=== PATIENT | female | born 1960 | race African-American/Black ===

== ENCOUNTER 2016-07-10 16:51 | Observation (INO) | payer BC ==
[~2016-07-10] VITALS: Ht 175.3 cm; Wt 70.2 kg
--- NOTE | ~2016-07-10 | HEMODYNAMI ---
PATIENT:PEG DANIELSON MEDICAL RECORD: [id number] : 62 LOCATION:[facility] D.[address]122 [facility]# [id number] ADMISSION DATE: 07/10/16 Generatedon:07/11/201615:35 Patient name: PEG DANIELSON Patient #: [id number] SSN: [id number] : 1960 Date of study: 07/11/2016 Page: Of Hemodynamic Procedure Report Patient Data Patient Demographics Procedure consent was obtained First Name: PEG Gender: Female Last Name: ERUM : 1960 [facility] Initial: E Age: 56 year(s) Patient #: [id number] Race: Black SSN: [id number] Additional ID: [id number] Contact details Address: [address] [place] [address] rd State: [place] City: [facility] Zip code: [address] Past Medical History Allergies: No known allergies Admission Admission Data Admission Date: 07/10/2016 Admission Time: 16:51 Arrival Date: 07/10/2016 Arrival Time: 16:51 Admit Source: Other Insurance Payor: Private Room #: [id number] health insurance Weight (lbs.): 159 Weight (kg.): 72.12 Lab Results Lab Result Date: 07/11/2016 Lab Result Time: 0:00 Biochemistry Name Units Result Min Max Creatinine mg/dl 0.9 --(-*--)-- 0.6 1.3 CBC Name Units Result Min Max Hemoglobin g/dl 13.3 -*(----)-- 13.5 17.5 Procedure Procedure Types Cath Procedure Diagnostic Procedure LHC LHC w/Coronaries Miscellaneous Procedures Moderate Sedation up to 30 minutes Procedure Description Procedure Date Procedure Date: 07/11/2016 Procedure Start Time: 15:14 Procedure End Time: 15:30 Procedure Staff Name Function Deb Carbone RT Monitor Debo Sadler RN Nurse Bay Casarez MD Performing Physician Adria Mcneal RT Scrub Ashley Rivera RT Monitor Procedure Data Cath Procedure Fluoroscopy Diagnostic fluoroscopy Total fluoroscopy Time: 1.4 time: 1.4 min min Diagnostic fluoroscopy Total fluoroscopy dose: 236 dose: 236 mGy mGy Contrast Material Contrast Material Type Amount (ml) Isovue 370 58 Entry Location Entry Primary Successful Side Size Upsize Upsize Entry Closure Succes sful Closure Location (Fr) 1 (Fr) 2 (Fr) Remarks Device Remarks Femoral Right 5 Fr Exoseal artery Estimated blood loss: 5 ml Diagnostic catheters Device Type Used For End Catheter Placement Cordis 5Fr JL 4.0 Left Coronary Catheter (MP) Angiography Cordis 5Fr 3DRC Catheter Right Coronary (MP) Angiography Cordis 5Fr Pigtail LV Angiography Catheter (MP) Procedure Complications No complications Procedure Medications Medication Administration Route Dosage Oxygen NC 2 l/min Lidocaine 2% added to field 20 Heparin Flush Bag added to field 2 bags (1000units/500ml NS) 0.9% NaCl I.V. 100 ml/hr Versed I.V. 1 mg Fentanyl I.V. 50 mcg Versed I.V. 1 mg Fentanyl I.V. 50 mcg Versed I.V. 1 mg Fentanyl I.V. 50 mcg Versed I.V. 1 mg Fentanyl I.V. 50 mcg Hemodynamics Rest HGB: 13.3 (g/dl) Heart Rate: 82 (bpm) Pressure Samples Time Site Value (mmHg) Purpose Heart Use Rate(bpm) 15:24 LV 134/-6,13 Snapshot 87 15:25 LV 153/-9,23 Pullback 92 15:25 AO 135/70(99) Pullback 92 Gradients Valve Time Site 1 Site 2 Mean SEP/DFP Peak To Heart Use (mmHg) (sec/min) Peak Rate (mmHg) (bpm) Aortic 15:25 LV AO 15 27 18 92 153/-9,23 135/70(99) Calculations Valve P-P Mean Valve Index Valve Source Name Gradient Area Flow (cm2) Aortic 18 15 18 15 Snapshots Pre Cath Intra NCS Post Cath Vital Signs Time Heart Resp SPO2 etCO2 HA6pxck NIBP (mmHg) Rhythm Pain Sedation Rate (ipm) (%) (mmHg) (mmHg) Status Level (bpm) 15:02:44 72 20 100 0 0 140/82(114) NSR 0 (11) 10(A) , No pain 15:06:58 74 17 100 0 0 122/73(93) NSR 0 (11) 10(A) , No pain 15:11:06 76 17 99 0 0 110/76(89) NSR 0 (11) 10(A) , No pain 15:15:09 77 16 99 0 0 113/75(89) NSR 0 (11) 9(A) , No pain 15:19:15 86 17 96 0 0 115/74(96) NSR 0 (11) 9(A) , No pain 15:23:17 99 15 99 0 0 129/83(101) NSR 0 (11) 9(A) , No pain 15:27:29 87 16 100 0 0 122/74(102) NSR 0 (11) 9(A) , No pain 15:31:55 84 12 100 0 0 140/72(106) NSR 0 (11) 10(A) , No pain Medications Time Medication Route Dose Verified Delivered Reason Notes Effe ctiveness by by 14:57:22 Oxygen NC 2 Bay Buffie used for l/min Hermelindo Sadler RN procedure 15:01:19 Lidocaine 2% added 20ml Bay Bay for local to vial Hermelindo Casarez MD anesthetic field 15:01:25 Heparin Flush added 2 Bay Bay used for Bag to bags Hermelindo Casarez MD procedure (1000units/500ml field NS) 15:01:36 0.9% NaCl I.V. 100 Bay Buffie Per ml/hr Hermelindo Sadler RN physician 15:09:47 Versed I.V. 1 mg Bay Buffie for Hermelindo Sadler RN sedation 15:09:53 Fentanyl I.V. 50 Bay Buffie for mcg Hermelindo Sadler RN sedation 15:13:15 Versed I.V. 1 mg Bay Buffie for Hermelindo Sadler RN sedation 15:13:18 Fentanyl I.V. 50 Bay Buffie for mcg Hermelindo Sadler RN sedation 15:17:33 Versed I.V. 1 mg Bay Buffie for Hermelindo Sadler RN sedation 15:17:36 Fentanyl I.V. 50 Bay Buffie for mcg Hermelindo Sadler RN sedation 15:25:41 Versed I.V. 1 mg Bay Buffie for Hermelindo Sadler RN sedation 15:25:45 Fentanyl I.V. 50 Bay Buffie for mcg Casarez MD Sadler RN sedation Procedure Log Time Note 14:39:22 Debo Sadler RN sent for patient. Start room use. 14:49:34 Time tracking: Regular hours 14:49:38 Plan of Care:Hemodynamics will remain stable., Cardiac rhythm will remain stable., Comfort level will be maintained., Respiratory function will remain adequate., Patient/ family verbilizes understanding of procedure., Procedure tolerated without complication., Recovers from procedure without complications.. 14:49:46 Patient received from PCU to CCL 1 Alert and oriented. Tansferred to table in Supine position. 14:49:47 Warm blankets applied, and carlo hugger turned on for patient comfort. 14:49:48 Correct patient and procedure confirmed by team. 14:49:49 Signed procedure consent form obtained from patient. 14:49:50 ECG and BP/O2 sat monitors applied to patient. 14:49:51 Full Disclosure recording started 14:50:52 H&P Date Dictated: 07/11/2016 Within 30 days and on chart.. 14:50:54 Pre-op teaching completed and patient verbalized understanding. 14:50:54 Pre-procedure instructions explained to patient. 14:50:56 Family in patients room. 14:51:01 Patient NPO since Midnight. 14:51:07 Patient allergic to No known allergies 14:51:09 Is the patient allergic to Iodine/contrast media? No. 14:52:21 Is patient on blood thinner?No 14:52:26 Patient diabetic? Yes. 14:52:48 If diabetic: On Metformin? Yes 14:52:51 If on Metformin: Last Dose? 07/08/2016 14:53:00 Previous problem with sedation/anesthesia? No ? 14:53:02 Snore? Yes 14:53:03 Sleep apnea? No 14:53:14 Opens mouth fully? Yes 14:53:14 Deviated septum? No 14:53:15 Sticks out tongue? Yes 14:53:23 Airway obstruction? No ? 14:53:28 Dentures? Yes in 14:53:45 Pre procedure: right dorsailis pedis pulse 1+ Palpable, but thready & weak; easily obliterated 14:53:48 Patient pain scale 0/10 ?. 14:54:06 IV patent on arrival in right forearm with 0.9% NaCl at [facility]. 14:54:34 Lab Result : Hemoglobin 13.3 g/dl 14:54:34 Lab Result : Creatinine 0.9 mg/dl 14:54:43 Lab results completed and on chart. 14:54:46 Alarms reviewed by R. N. 14:54:46 Right groin area was prepped with chlora-prep and draped in sterile fashion 14:54:47 Sharps counted by scrub and verified by R.N. 14:54:49 Use device set Femoral Dx 14:54:50 Bag Decanter opened to sterile field. 14:54:50 Acist Syringe opened to sterile field. 14:54:51 Terumo 5Fr Van Horne Sheath opened to sterile field. 14:54:51 Medline Cath Pack opened to sterile field. 14:54:52 St Alexander 260cm J .035 wire opened to sterile field. 14:54:53 Acist Hand Control opened to sterile field. 14:54:54 Diagnostic Infinity 5Fr Multipack catheter opened to sterile field. 14:54:54 Acist Manifold opened to sterile field. 14:54:55 Tegaderm 4 x 4 opened to sterile field. 14:57:22 Oxygen 2 l/min NC was administered by Debo Sadler RN; used for procedure; 15:01:19 Lidocaine 2% 20ml vial added to field was administered by Bay Casarez MD; for local anesthetic; 15:01:25 Heparin Flush Bag (1000units/500ml NS) 2 bags added to field was administered by Bay Casarez MD; used for procedure; 15:01:36 0.9% NaCl 100 ml/hr I.V. was administered by Debo Sadler RN; Per physician; ::44 Vital chart was started 15:08:37 Physician arrived 15:08:38 --------ALL STOP TIME OUT------ 15:08:38 Final Timeout: patient, procedure, and site verified with staff and physician. All members of the team are in agreement. 15:08:42 Right groin site verified by team. 15:08:46 Physical assessment completed. ASA score P 2 - A patient with mild systemic disease as per Bay Casarez MD. 15:08:49 Sedation plan: IV Moderate Sedation Versed, Fentanyl 15::47 Versed 1 mg I.V. was administered by Buffie Sadler RN; for sedation; 15:09:53 Fentanyl 50 mcg I.V. was administered by Debo Sadler RN; for sedation; 15:11:59 Procedure started. 15:13:15 Versed 1 mg I.V. was administered by Debo Sadler RN; for sedation; 15:13:18 Fentanyl 50 mcg I.V. was administered by Debo Sadler RN; for sedation; 15:14:27 Zero performed for pressure channel P1 15:14:54 Local anesthetic to right femoral artery with Lidocaine 2% by Bay Casarez MD.INITIAL ACCESS ONLY 15:15:22 A 5 Fr sheath was inserted into the Right Femoral artery 15:15:52 A Cordis 5Fr JL 4.0 Catheter (MP) was advanced over the wire and used for Left Coronary Angiography. 15:16:21 Baseline sample Acquired. 15:17:33 Versed 1 mg I.V. was administered by Debo Sadler RN; for sedation; 15:17:36 Fentanyl 50 mcg I.V. was administered by Debo Sadler RN; for sedation; 15:20:42 LCA angiography performed. 15:20:56 Injector settings: Ml/sec: 3, Volume: 6, 15:22:05 Catheter removed. 15:22:12 A Cordis 5Fr 3DRC Catheter (MP) was advanced over the wire and used for Right Coronary Angiography. 15:23:02 RCA angiography performed. 15:23:27 Injector settings: Ml/sec: 3, Volume: 6, 15:23:35 Catheter removed. 15:23:45 A Cordis 5Fr Pigtail Catheter (MP) was advanced over the wire and used for LV Angiography. 15:24:39 LV hemodynamics recorded. 15:24:40 LV gram done using CRAIG 15:24:43 Injector settings: Ml/sec: 5, Volume: 15, 15:24:50 EF : 60 % 15:25:41 Versed 1 mg I.V. was administered by Debo Sadler RN; for sedation; 15:25:45 Fentanyl 50 mcg I.V. was administered by Debo Sadler RN; for sedation; 15:26:05 Catheter removed. 15:26:41 Cordis 5Fr Exoseal opened to sterile field. 15:27:21 Sheath removed intact; hemostasis achieved with Exoseal to the Right Femoral artery. 15:27:25 Procedure ended.(Physican Out) 15:28:08 Fluoroscopy time 01.40 minutes. 15:28:12 Fluoroscopy dose: 236 mGy 15:28:12 Flurop Dose total: 236 15::59 Contrast amount:Isovue 370 58ml. 15:29:01 Sharps counted by scrub and verified by R.N. 15:29:02 Insertion/operative site no bleeding no hematoma. 15:29:05 Post-op/insertion site Right Femoral artery dressed using a 4 x 4 and Tegaderm. 15:29:08 Post right femoral artery:stable 15:29:10 Post Procedure Pulses reassessed and unchanged 15:29:13 Post procedure rhythm: unchanged. 15:29:16 Estimated blood loss: 5 ml 15:29:17 Post procedure instruction explained to patient.Patient verbalizes understanding. 15:29:18 Patient needs reinforcement of post procedure teaching. 15:29:31 Procedure type changed to Cath procedure, Diagnostic procedure, LHC, LHC w/Coronaries, Miscellaneous Procedures, Moderate Sedation up to 30 minutes 15:29:33 Procedure and supply charges have been captured, reviewed, submitted and are correct. 15:29:38 Procedure Complication : No complications 15:29:40 Vital chart was stopped 15:29:41 See physician's report for complete and final results. 15:30:01 Report given to Med II. 15:30:05 Patient transfered to Med II with Stretcher. 15:30:07 Full Disclosure recording stopped 15:30:07 Procedure ended. 15:30:11 End room use (Document Last) 15:31:02 Admit Source: Other 15:31:06 Arrival Date: 07/10/2016 4:51:00 PM 15:31:14 Insurance Payor : Private health insurance 15:31:26 Patient Weight : 159 kg Device Usage Item Name Manufacture Quantity Catalog Hospital Part Current Minimal Lo t# / Number Charge Number Stock Stock Serial# Code Acist Acist 1 72201 161118 516558 804105 20 Syringe [employer] Inc Bag Microtek 1 2002S 720858 13234 237855 5 Decanter Medical Inc. Medline Cardinal 1 [id number] 469690 67535 636513 5 Cath Pack Health Terumo 5Fr Terumo 1 [id number] 979136 989747 882090 [address] [facility] 1 467153 265252 239786 093411 30 260cm J .035 wire Acist Hand Acist 1 50914 284036 736186 754242 5 Control Medical Systems Inc Acist Acist 1 82211 171512 882668 235846 5 Manifold Medical Systems Inc Diagnostic Cardinal 1 [id number] 230090 17890 681565 30 Infinity Health 5Fr Multipack catheter Tegaderm 4 3M 1 1626W 084062 496004 581892 5 x 4 Cordis 5Fr Cardinal 1 291014 5 JL 4.0 Health Catheter (MP) Cordis 5Fr Cardinal 1 690655 5 3DRC Health Catheter (MP) Cordis 5Fr Cardinal 1 338871 5 Pigtail Health Catheter (MP) Cordis 5Fr Cardinal 1 EX500 665200 618421 092456 10 [facility] Health Signature Audit [place]att[place] Stage Time Signature Unsigned Intra-Procedure 07/11/2016 Ashley Rivera 3:35:16 PM RT(R) Signatures Monitor : Deb Signature : Raf RT Date : Time : Monitor : Ashley Rivera RT Signature : Date : Time : [address] [address]
--- NOTE | ~2016-07-10 | OP ---
PATIENT NAME: PEG DANIELSON MEDICAL RECORD: [id number] :62 LOCATION:D. D.2122 ADMISSION DATE:07/10/16 SURGEON: NITESH COPE M.D. DATE OF OPERATION: 07/11/2016 REFERRING PHYSICIAN: Yaya Michele MD PROCEDURES PERFORMED: 1. Selective coronary angiography. 2. Left heart catheterization with ventriculogram. INDICATION: A 56-year-old woman, who presents after a syncopal episode and chest discomfort. EQUIPMENT USED: A 5-Uruguayan JL4, Rodney right, pigtail catheter. TECHNIQUE: A 5-Uruguayan sheath was inserted in a retrograde fashion in the right common femoral artery. Next, selective coronary angiography was performed in standard 5-Uruguayan JL4 and Rodney right. Left heart catheterization was performed using the pigtail catheter. CORONARY ANATOMY: 1. Left main: Left main trunk is moderate in caliber. It gives rise to the LAD and circumflex. It has no obstruction. 2. LAD: This is a moderate caliber vessel extending to the apex. The mid vessel has been stented. 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 There is mild restenosis seen, but no flow limitations throughout this area. 3. Circumflex: This vessel is moderate in caliber. It is a smooth-walled vessel and angiographically normal. 4. Right coronary artery: This vessel is moderate in caliber and dominant. It provides the PDA and distal segment. This vessel is smooth-walled and angiographically normal. 5. Left ventricle: Left ventricle is normal in size and function. No wall motion abnormalities are seen. Its ejection fraction is 60%. IMPRESSION: 1. Patent stent in the left anterior descending without any evidence of significant restenosis. 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 2. The circumflex and right coronary artery are widely patent. RECOMMENDATIONS: At this point, her syncope does not appear to be from a coronary insufficiency. We will likely place an event monitor on her to rule out arrhythmia. TRANSINT:[id number] Voice Confirmation ID: [id number] DOCUMENT ID: [id number] NITESH COPE M.D. CC: [id number] DICTATION DATE: 07/11/16 1537 WET TRIMMER: 07/11/168 DIS IN 07/11/16 [place] [address]
[~2016-07-10 16:51] MED LIST: ASPIRIN81 MG PO; PLAVIX75 MG PO; PRINZIDE 20/12.1 TA1 PO
--- NOTE | 2016-07-10 17:07 | NUR ---
TRANSFER FROM ADMISSIONS BY W/C. OREINTED TO ROOM. CALL LIGHT IN REACH. WILL CONT. PLAN OF CARE.
[2016-07-10] MEDS ORDERED: GLUCOPHAGE500 MG PO (17:34)
[2016-07-10 17:43] VITALS: BP 131/78; BMI 23.5
[2016-07-10 18:41] LABS: CKMB 1.9 U/L (0.0-3.6); CREATINE KINASE 169 UL (21-215)
[2016-07-10 18:48] LABS: TROPONIN-I < 0.017 ng/mL (0.000-0.060)
[2016-07-10 20:46] VITALS: BP 127/71
--- NOTE | 2016-07-10 23:25 | NUR ---
THIS PM, PATIENT HAS NO COMPLAINTS. WARM AND DRY. NO PAIN. MONITOR SHOWS NSR@63
[2016-07-10 23:56] LABS: CKMB 1.6 U/L (0.0-3.6); CREATINE KINASE 140 UL (21-215); TROPONIN-I < 0.017 ng/mL (0.000-0.060)
[2016-07-10 23:58] VITALS: BP 110/56
[2016-07-11 04:11] VITALS: BP 126/79
--- NOTE | 2016-07-11 06:32 | NUR ---
AWAKE BUT HAS SLEPT ALL NIGHT NO CO OR NO DISTRESS.
[2016-07-11 06:59] LABS: CKMB 1.3 U/L (0.0-3.6); CREATINE KINASE 126 UL (21-215); TROPONIN-I < 0.017 ng/mL (0.000-0.060)
[2016-07-11 08:03] LABS: ANION GAP 8.4 mmol/L (8-16); CARBON DIOXIDE 34.1 mmol/L (21.0-32.0); CREATININE - SERUM 0.9 mg/dL (0.6-1.3); POTASSIUM - SERUM 4.5 mmol/L (3.5-5.1)
[2016-07-11 08:04] LABS: BASOPHILS 0.5 % (0-2); EOSINOPHILS 7.1 % (0-7); HEMATOCRIT 41.3 % (36.0-48.0); HEMOGLOBIN 13.3 g/dL (12-16); IMMATURE GRANULOCYTES 0.3 % (0-5); LYMPHOCYTES 51.1 % (15-50); MCH 30.8 pg (26.0-34.0); MCHC 32.2 g/dL (31.0-37.0); MCV 95.6 fL (80.0-100.0); MEAN PLATELET VOLUME 10.9 fL (7.4-10.4); MONOCYTES 11.6 % (2-11); NEUTROPHILS 29.4 % (40-80); PLATELET COUNT 201 10x3/uL (130-400); RBC 4.32 10x6/uL (4.00-5.40); RDW 13.3 % (11.5-14.5); WBC 3.8 10x3/uL (4.8-10.8)
--- NOTE | 2016-07-11 08:04 | NUR ---
CONSENTS OBTAINED FOR CATH WITH TODAY. PT SITTING UP IN BED RESTING QUIETLY WITH FAMILY AT BEDSIDE. WRAPPED PTS IV SO SHE CAN TAKE A SHOWER. PT DENIES NEEDING MORNING MEDS AND STATES SHE HAS HER HOME MEDS, WILL PROVIDED ASPIRIN R/T HER NOT HAVING THAT ONE. NO FURTHER NEEDS AT THIS TIME. WILL CPOC.
--- NOTE | 2016-07-11 08:23 | HP ---
PATIENT: PEG DANIELSON MEDICAL RECORD: [id number] ACCOUNT: [id number] LOCATION:[address] : 62 ADMISSION DATE: 07/10/16 HISTORY AND PHYSICAL EXAMINATION DATE ASSIGNED TO OBSERVATION: 07/10/2016 CHIEF COMPLAINT: Palpitations and syncopal episode. HISTORY OF PRESENT ILLNESS: A 56-year-old -[place] female, who presented to our office today. She sees Priya Palafox our nurse practitioner and gave her history of episodes of palpitations for 3-4 weeks. She has had about 4 of those palpitations a day, lasting anywhere from 1-3 minutes. Yesterday, she was getting off a [place] bus and felt dizzy while standing up and lost consciousness and fell to the ground. She was out for a few seconds. She did not go to the Emergency Room yesterday. She elected to come in today in our office. Her CBC and basic metabolic panel were both normal. She has a history of coronary artery disease, diabetes and hypertension with those symptoms. It was felt she needed to be in observation and cardiac consultation. PAST MEDICAL AND SURGICAL HISTORY: Again, hypertension, type 2 diabetes, coronary artery disease with a stent to the LAD on 07/21/[address] Briones. HOME MEDICATIONS: Aspirin 81 mg once a day, lisinopril and HCTZ 20/12.5 mg once a day, Jentadueto 2.5/500 mg twice a day. ALLERGIES: None known. HABITS: Former smoker, quit 12 years ago. No alcohol or drugs. SOCIAL HISTORY: She is , works at [employer]. FAMILY HISTORY: Father of an CT in his late 60s. Mother of an CT in her early 60s. A brother with coronary artery disease as well. REVIEW OF SYSTEMS: GENERAL: No major weight changes. HEENT: No particular sinus or allergy problems. RESPIRATORY: No history of emphysema, asthma or pneumonia. CARDIAC: See above history. GASTROINTESTINAL: No significant reflux problems. No diarrhea or constipation. GENITOURINARY: No significant problems there. MUSCULOSKELETAL: No significant joint aches and pains. NEUROLOGIC: No seizures, no migraine headaches. PSYCHIATRIC: No depression or melancholia. PHYSICAL EXAMINATION: VITAL SIGNS: Today, temperature 98.1, pulse 66, respirations 20, blood pressure 131/78, O2 sat 99%. GENERAL: She does not appear to be in acute distress. She is awake and alert. HEENT: Grossly within normal limits. NECK: Supple. No JVD or bruit. HEART: Regular rate and rhythm without murmur. LUNGS: Clear. ABDOMEN: Soft, flat, and nontender. HISTORY AND PHYSICAL [id number] PEG DANIELSON EXTREMITIES: No edema. NEUROLOGIC: Appears intact. LABORATORY DATA: CBC done in our office showed a white count of 6000, hemoglobin 13.4, hematocrit of 40.5. Basic metabolic panel in our office, sodium 145, potassium 3.5, chloride 105, CO2 of 30, BUN 19, creatinine 0.8, glucose 145, calcium 9.4. DIAGNOSTIC DATA: EKG done here in the hospital shows sinus rhythm with premature atrial contractions. ASSESSMENT: 1. Chest pain. 2. Palpitations. 3. Syncopal episode. 4. Hypertension. 5. Diabetes. PLAN: We will get serial cardiac enzymes. We will consult cardiology. We will start Lovenox and Pepcid, get a carotid Doppler ultrasound, other tests and procedures as warranted. TRANSINT:[id number] Voice Confirmation ID: [id number] DOCUMENT ID: [id number] HERBERT BARLOW MD at 0823 CC: [id number] DICTATION DATE: 07/10/162023 HOT WALKER: 07/11/16 0130 ADM IN [place] [id number] [place] [id number]
[2016-07-11 09:49] VITALS: BP 135/90
[2016-07-11 13:12] VITALS: BP 123/69
--- NOTE | 2016-07-11 14:22 | NUR ---
GOLF COACH CALLED TO PRE-OP PT. PRE-OP MEDS GIVEN. PT WAITING PATIENTLY WITH AT BEDSIDE. NO FURTHER NEEDS AT THIS TIME.
[2016-07-11 15:18] VITALS: Ht 175.3 cm; Wt 70.2 kg
--- NOTE | 2016-07-11 16:20 | NUR ---
PT BACK FROM [employer]PER[employer]. FRANCO HAS DRSG CDI NO S/S OF BLEEDING OR HEMATOMA NOTED. VSS AND BEING RECORDED [id number] PER PROTOCOL. INITIATED PTS IV NS INFUSING @100ML/HR VIA R.WRIST PIV ACCESS. PERIPHERAL PULSES INTACT. PT DENIES ANY CURRENT NEEDS. WILL CTM.
--- NOTE | 2016-07-11 18:20 | NUR ---
2 HOUR BED REST COMPLETED. ASSISTED PT UP IN BED. CALLED AND WILL BE DISCHARGING PT. D/C PTS R.WRIST PIV WITH CATHETER TIP FULLY INTACT. PT DENIES ANY QUESTIONS OR CURRENT NEEDS. R.GROALEXYS AUGUSTEG STILL CDI WITHOUT S/S OF BLEEDING OR HEMATOMA NOTED. WILL CTM.
== END 2016-07-11 19:12 | disposition home or self-care (01) ==
LOC: D.M2 16:51 → OBSVTIME 16:52 → D.M2 07-11 19:12
PROVIDERS: Internal Medicine Cardiovascular Disease; ADMIT Family Medicine
DX: R07.9 Chest pain, unspecified (principal); R55 Syncope and collapse; R00.2 Palpitations; I25.10 Atherosclerotic heart disease of native coronary artery without angina pectoris; Z95.5 Presence of coronary angioplasty implant and graft; E11.9 Type 2 diabetes mellitus without complications; Z79.84 Long term (current) use of oral hypoglycemic drugs; I10 Essential (primary) hypertension; Z87.891 Personal history of nicotine dependence

== ENCOUNTER → 2018-02-25 15:26 | Outpatient (CLI) | payer BC ==
[2016-07-11 15:18] VITALS: BMI 22.8
[~2018-02-25 15:26] MED LIST changes: +GLUCOPHAGE500 MG PO
== END | disposition home or self-care (01) ==
LOC: D.MAMMO 10:00
DX: Z12.31 Encounter for screening mammogram for malignant neoplasm of breast (principal)

== ENCOUNTER 2020-05-24 11:15 | Outpatient (CLI) | payer BC ==
[2016-07-11 15:18] VITALS: BMI 22.8
== END 2020-05-24 11:45 | disposition home or self-care (01) ==
LOC: D.MAMMO 11:15
PROVIDERS: ATTEND Nurse Practitioner
DX: Z12.31 Encounter for screening mammogram for malignant neoplasm of breast (principal)